=== PATIENT | male | born 1990 | race African-American/Black ===

== ENCOUNTER 2023-11-09 07:16 | Emergency (ER) | payer OTHER ==
[~2023-11-09] VITALS: Ht 162.6 cm; Wt 77.4 kg
[2023-11-09] MEDS: ONDANSETRON 4MG ORAL DISINTEGRATING TAB PO ONE (07:43)
[2023-11-09] MEDS ORDERED: ONDA4TAB6 PO (08:39)
[2023-11-09 08:49] VITALS: BP 151/85; TEMP 97.9; O2SAT 98
== END 2023-11-09 08:51 | disposition home or self-care (01) ==
LOC: M ED 07:16
DX: R11.2 Nausea with vomiting, unspecified (principal); A05.9 Bacterial foodborne intoxication, unspecified; Z79.83 Long term (current) use of bisphosphonates

== ENCOUNTER 2025-07-19 13:48 | Emergency (ER) | payer OTHER ==
[~2025-07-19] VITALS: Ht 162.6 cm; Wt 80.9 kg
[~2025-07-19 13:48] MED LIST: ONDA-282 PO
[2025-07-19 13:55] VITALS: BP 146/76; TEMP 103.9; O2SAT 99
[2025-07-19 14:30] LABS: KETONE, URINE AUTO RFX NEGATIVE (NEGATIVE); LEUKOCYTE ESTERASE UR AUTO RFX NEGATIVE (NEGATIVE); MUCUS, URINE RFX SMALL (NEGATIVE); NITRITE, URINE AUTO RFX NEGATIVE (NEGATIVE); RBC, URINE AUTO RFX 3 /HPF (0-3); SQUAM EPITHELIAL CELL UR AURFX 0 /HPF (0-6); WBC, URINE AUTO RFX 0 /HPF (0-3)
[2025-07-19] MEDS: IBUPROFEN 600 MG TAB PO ONE (15:54)
== END 2025-07-19 16:05 | disposition home or self-care (01) ==
LOC: EDBD 13:48 → M ED 13:48
DX: B34.9 Viral infection, unspecified (principal)

== ENCOUNTER 2025-07-24 13:01 | Emergency (ER) | payer OTHER ==
[~2025-07-24] VITALS: Ht 162.6 cm; Wt 78.9 kg
[2025-07-24 13:39] LABS: BASO # 0.1 10^3/uL (0.0-0.2); BASO % 0.7 % (0.0-1.0); EOS # 0.1 10^3/uL (0.0-0.5); EOS % 0.9 % (0.0-3.0); LYMPH # 1.9 10^3/uL (1.5-5.0); LYMPH % 18.3 % (24.0-44.0); MONO # 0.4 10^3/uL (0.0-0.8); MONO % 3.5 % (2.0-8.0); NEUTROPHILS # 7.7 10^3/uL (1.5-8.5); NEUTROPHILS % 72.7 % (36.0-66.0); PLATELET COUNT, AUTOMATED 365 10^3/uL (150-450)
[2025-07-24 14:13] LABS: ALT/SGPT 47 U/L (7.0-40); AST/SGOT 27 U/L (<34); CALCIUM LEVEL 8.9 MG/DL (8.5-10.1); CARBON DIOXIDE LEVEL 29 MMOL/L (20-31); CHLORIDE LEVEL 101 MMOL/L (98-107); CK-MB VALUE MASS < 1.0 NG/ML (<3.6); CPK CREATINE PHOSPHOKINASE 110 U/L (46-171); CREATININE FOR GFR 1.03 MG/DL (0.70-1.30); GLOMERULAR FILTRATION RATE > 90.0 (>60); POTASSIUM SERUM 4.1 MMOL/L (3.5-5.1); SODIUM LEVEL 138 MMOL/L (136-145)
[2025-07-24 15:01] LABS: CK-MB VALUE MASS < 1.0 NG/ML (<3.6)
[2025-07-24 15:03] LABS: CPK CREATINE PHOSPHOKINASE 112 U/L (46-171)
[2025-07-24] MEDS: IPRATROPIUM 0.5 MG/ALBUTEROL 2.5 MG INH SOL UD 3 ML NEB ONE (15:44)
[2025-07-24] MEDS ORDERED: ISOVUE-370 76% 100 ML VIAL As Ordered ONE (15:57)
[2025-07-24] MEDS ORDERED: AMOX500T PO (18:06)
[2025-07-24] MEDS ORDERED: AMOXICILLIN 500 MG CAP PO ONE (18:10)
[2025-07-24] MEDS: AMOXICILLIN 500 MG CAP PO ONE (18:27)
[2025-07-24 18:32] VITALS: BP 140/80; TEMP 98.2; O2SAT 100
== END 2025-07-24 18:33 | disposition home or self-care (01) ==
LOC: M ED 13:01
DX: J18.9 Pneumonia, unspecified organism (principal); Z79.2 Long term (current) use of antibiotics
CPT/HCPCS: 36415; 71046; 71275; 80048; 80076; 82550; 82553; 84484; 85025; 87486; 87581; 87633; 87798; 93005; 94640; 99284; Q9967